=== PATIENT | male | born 1970 | race Two or more races ===

== ENCOUNTER 2024-06-27 08:41 | Emergency (ER) | payer MEDICAID, SELFPAY ==
[2024-06-27 08:52] VITALS: BP 134/85; PULSE 86; RESP 19; TEMP 37.2; O2SAT 95; BMI 39.3
--- NOTE | 2024-06-27 08:54 | XR_ITS ---
Examination: Humerus 2 views right Technique: Humerus, AP lateral 2 views Date and time of exam: June 27, 2024 0916 hours INDICATIONS: Injury to the arm today, arm pain. FINDINGS: Acute fracture humeral neck, without significant displacement Shaft of the humerus intact IMPRESSION: Acute nondisplaced fracture humeral neck
--- NOTE | 2024-06-27 08:55 | EDNOTE_ITS ---
<Statement entered by Tyra Lazaro MD - 06/27/24 15:15> As co-signing physician, I was present and available for consult prn. I concur with the plan and care as documented by the midlevel provider. ED Fall Injury RME/HPI General Chief Complaint: Fall Stated Complaint: fall c/o right upper arm pain, no loc Time Seen by Provider: 06/27/24 08:55 Source: patient Arrival date/time: 06/27/24 08:41 54-year-old male with no known medical history presents to the emergency room with a chief complaint of tenderness and pain to his right arm after a ground- level fall 1 hour ago. Mode of arrival: ambulatory Limitations: no limitations Related Data Previous Rx's ?Medication ?Instructions ?Recorded hydrocodone 5 mg-acetaminophen 325 1 tab PO BID PRN pa in #10 tabs 06/27/24 mg tablet Allergies Allergy/AdvReac Type Severity Reaction Status Date / Time No Known Allergies Allergy Verified 06/27/24 08:45 Review of Systems Review of Systems Systems Reviewed: All systems reviewed, normal except as documented Constitutional Constitutional: Reports system reviewed and no additional complaints, except as documented, Denies fatigue, Denies fever(s), Denies headache(s) and Denies we akness Eyes Eyes: Reports system reviewed and no additional complaints, except as documented, Denies blurry vision and Denies change in vision ENT Ears, Nose, Mouth, and Throat: Reports system reviewed and no additional complaints, except as documented, Denies otalgia, Denies headache(s), Denies nasal congestion, Denies throat swelling and Denies vertigo Cardiovascular Cardiovascular: Reports system reviewed and no additional complaints, except as documented, Denies chest pain, Denies dyspnea and Denies dyspnea on exertion Respiratory Respiratory: Reports system reviewed and no additional complaints, except as documented, Denies chest congestion, Denies cough, Denies dyspnea, Denies dyspnea on exertion and Denies wheezing Gastrointestinal Gastrointestinal: Reports system reviewed and no additional complaints, except as documented, Denies abdominal pain, Denies cramping, Denies nausea and Denies vomiting Genitourinary Genitourinary: Reports system reviewed and no additional complaints, except as documented, Denies dysuria and Denies hematuria Musculoskeletal Musculoskeletal: Reports system reviewed and no additional complaints, except as documented, Reports arthralgias, Denies back pain, Denies deformity and Reports joint swelling Integumentary/Breasts Skin/Breast: Reports system reviewed and no additional complaints, except as documented and Denies wounds Neurologic Neurologic: Reports system reviewed and no additional complaints, except as documented, Denies confusion, Denies headache(s), Denies lack of coordination, Denies vertigo and Denies weakness Psychiatric Psychiatric: Reports system reviewed and no additional complaints, except as documented, Denies anxiety, Denies confusion, Denies depression, Denies paranoia, Denies suicidal ideation and Denies tactile hallucinations Endocrine Endocrine: Reports system reviewed and no additional complaints, except as documented and Denies fatigue Hematologic/Lymphatic Hematologic/Lymphatic: Reports system reviewed and no additional complaints, except as documented and Denies lymphadenopathy Allergic/Immunologic Allergic/Immunologic: Reports system reviewed and no additional complaints, except as documented, Denies throat swelling, Denies urticaria and Denies wheezing ED Exam General Limitations: Present no limitations General appearance: Present alert and in no apparent distress Head Head exam: Present atraumatic Eye Eye exam: Present normal appearance, PERRL and EOMI ENT ENT exam: Present normal exam, normal oropharynx and mucous membranes moist Neck Neck exam: Present normal inspection, full ROM and trachea midline Chest Chest inspection: Present normal inspection and symmetric chest wall rise Respiratory Respiratory exam: Present normal lung sounds bilaterally Cardiovascular Cardiovascular exam: Present regular rate, normal rhythm and normal heart sounds Abdominal Exam Abdominal exam: Present soft and normal bowel sounds Extremities Exam Extremities exam: Present normal inspection and full ROM Expanded Upper Extremity Exam Shoulder exam: Present normal inspection and full ROM; Absent tenderness or swelling Arm exam: Present tenderness and swelling Elbow exam: Present normal inspection Forearm/Wrist exam: Present normal inspection Hand exam: Present normal inspection Vascular exam: Normal capillary refill Back Exam Back exam: Present normal inspection and full ROM Neurological Exam Neurological exam: Present alert, oriented X3 and CN II-XII intact Psychiatric Psychiatric exam: Present normal affect and normal mood Skin Skin exam: Present warm, dry, intact and normal color Course Quality Measures none Orders Category Date Time Status sling [Splint / Immobilizer] STAT Care 06/27/24 10:21 Completed XR humerus RT min 2V Stat Exams 06/27/24 08:54 Completed Ketorolac Inj [Toradol Inj] Med 06/27/24 08:54 Discontinued 30 mg IM X1 ONE Vital Signs Vital signs: Vital Signs Temperature 98.9 F 06/27/24 08:52 Pulse Rate 86 06/27/24 08:52 Respiratory Rate 19 06/27/24 08:52 Blood Pressure 134/85 H 06/27/24 08:52 Pulse Oximetry (%) 95 06/27/24 08:52 Oxygen Delivery Method Room Air 06/27/24 08:52 O2 saturation 95% within normal limits Fall MDM Narrative MDM Narrative:: 54-year-old male with no known medical history presents to the emergency room with a chief complaint of tenderness and pain to his right arm after a ground- level fall 1 hour ago. Patient is hemodynamically stable and in no apparent distress Physical examination shows pain and tenderness to the patient's right arm. Ther e is a limited range of motion to the patient's shoulder. There is no pain or tenderness to the patient's elbow. Patient is unable to lift his shoulder above his head and states the pain is very severe. X-ray of the humerus was completed and there is an acute fracture of the humeral neck. A sling was placed on the patient for comfort and the patient was discharged. Patient was educated that h e will need to follow-up with his primary care provider get a referral to an product marketing specialist for further management of this acute fracture. Patient was discharged and educated to follow-up with primary care provider in the next 24 to 48 hours and return to the emergency room for any evidence of worsening signs or symptoms Patient data External records reviewed:: [facility] previous records Clinical information provided by:: patient Social determinants that could affect healthcare access:: none Patient has the following chronic illnesses:: No chronic illness How is presenting disease/condition affected by chronic disease/condition?: no chronic disease Evaluation data The following diagnostics were reviewed and interpreted by me:: lab results and radiology exam(s) Lab and/or radiology exams considered but not ordered:: Labs and radiology exams considered and ordered Interpretation Summary: Humerus [id number]: Acute fracture humeral neck, without significant displacement Shaft of the humerus intact IMPRESSION: Acute nondisplaced fracture humeral neck Medications / Prescriptions Medications or Prescriptions considered but not ordered:: Medication given Medication administrations:: Medication Administration History Discontinued Medications Ketorolac Tromethamine (Ketorolac Inj 60 Mg/2 Ml Vial) 30 mg IM X1 ONE Stop: 06/27/24 08:55 Last Admin: 06/27/24 09:03 Dose: 30 mg Documented By: JAM Medication given Consultations Consultation(s) initiated? (list below): No Diagnosis Fall Differential Diagnosis: dislocation of shoulder region and other (Right arm sprain/humerus fracture/) Most likely diagnosis given after review of the tests above:: Acute fracture of the right humeral head Admission Indicated Admission indicated?: not indicated Admission Request Was there a request for admission?: No Disposition Plan Disposition Plan: Discharge Discharge Attestation Discharge Attestation: The patient and all family members were given an opportunity to ask questions and understood the discharge instructions. Discharge instructions specifically effects, indications for sooner follow up or return to the emergency department, and the expected course of current diagnosis. Patient condition: Stable Discharge Plan Plan Patient Disposition: HOME (Self Care) Disposition Comment: Stable Prescriptions/Referrals Prescriptions/Med Rec: New hydrocodone-acetaminophen 5-325 mg tablet 1 tab PO BID MDD 10mg PRN (Reason: pain) Qty: 10 0RF Referrals: Robin Don FNP [Primary Care Provider] - In 1 week Problem List Clinical Impression: Fracture of humeral head Patient/Caregiver Discharge Instructions Education Materials: Understanding a Humerus Fracture, ED Fracture, Upper Extremity Additional Instructions: Por favor, consulte con murray m?dico de cabecera en las pr?ximas 24 a 48 horas. Necesitar? ser derivado a un especialista en [employer] para el tratamiento de esta fractura. Mantenga el cabestrillo puesto hasta que un especialista en [employer] le d? el jennifer. Se enviaron analg?sicos a murray farmacia; rec?jalos y t?melos seg?n las indicaciones. Ante cualquier signo de empeoramiento de los signos o s?ntomas, acuda inmediatamente a urgencias. Print Language: Slovenian Stand Alone Forms: Britt Award Info., Patient Portal Info Letter BRIGHT/AUTOMOBILE MECHANIC RADIATOR Supervising Physician BRIGHT/JODI Supervising Physician: Emery
[2024-06-27] MEDS: KETOROLAC INJ 60 MG/2 ML VIAL 30 MG IM (09:03)
[2024-06-27 10:42] VITALS: BP 141/94; PULSE 75; RESP 16; TEMP 37.6; O2SAT 96
[2024-06-27 11:42] VITALS: BP 128/89; PULSE 78; RESP 16; TEMP 37.2; O2SAT 100
== END 2024-06-27 11:44 | disposition home or self-care (01) ==
PROVIDERS: Emergency Provider Emergency Medicine
DX: S42.291A Other displaced fracture of upper end of right humerus, initial encounter for closed fracture (principal); W18.30XA Fall on same level, unspecified, initial encounter
CPT/HCPCS: 73060; 96372; 99283; A4565; J1885

== ENCOUNTER → 2024-07-20 | Outpatient (CLI) | payer MEDICAID, SELFPAY ==
--- NOTE | 2024-07-20 13:21 | XR_ITS ---
Examination: Shoulder,right, 3 views Technique: Shoulder AP internal rotation, AP external rotation, Y view shoulder, 3 views Exam date and time :July 20, 2024 1329 hours INDICATIONS: Patient fell last month with injury to the shoulder right humeral neck fracture FINDINGS: Interval partial healing and stable alignment fracture right humeral neck No dislocation IMPRESSION: Interval partial healing and stable alignment fracture right humeral neck
== END | disposition home or self-care (01) ==
PROVIDERS: PCP Physician Assistant; Referring Provider Orthopaedic Surgery; Visit Provider Orthopaedic Surgery
DX: S42.211A Unspecified displaced fracture of surgical neck of right humerus, initial encounter for closed fracture (principal); W19.XXXA Unspecified fall, initial encounter
CPT/HCPCS: 73030

== ENCOUNTER → 2024-08-24 | Outpatient (CLI) | payer MEDICAID, SELFPAY ==
--- NOTE | 2024-08-24 13:48 | XR_ITS ---
Examination: Shoulder,right, 3 views Technique: Shoulder AP internal rotation, AP external rotation, Y view shoulder, 3 views Exam date and time :August 24, 2024 1550 hours INDICATIONS: History humeral neck fracture June 27, 2024 FINDINGS: Partial healing fracture humeral neck with stable and satisfactory alignment IMPRESSION: Partial healing fracture humeral neck with stable and satisfactory alignment
== END | disposition home or self-care (01) ==
PROVIDERS: PCP Physician Assistant; Referring Provider Orthopaedic Surgery; Visit Provider Orthopaedic Surgery
DX: S42.211A Unspecified displaced fracture of surgical neck of right humerus, initial encounter for closed fracture (principal); X58.XXXA Exposure to other specified factors, initial encounter
CPT/HCPCS: 73030